=== PATIENT | male | born 1965 | race Two or more races ===

== ENCOUNTER 2024-05-27 18:58 | Emergency (ER) | payer BC, SELFPAY ==
--- NOTE | 2024-05-27 19:04 | EKG_ITS ---
[facility] Test Date: 2024-05-27 Pat Name: GERMAN MELÉNDEZ Department: Room: - Gender: Male Director Of Promotions: : 1965 Requested By: Colin Manuel Order Number: [id number] Reading MD: Colin Manuel Measurements Intervals [place] Rate: 83 P: 48 IN: 177 QRS: -4 QRSD: 100 T: 29 QT: 349 QTc: 412 Interpretive Statements SINUS RHYTHM Compared to ECG 05/16/2018 14:28:26 No significant changes /store/S0/[id number]/[id number].pdf
[2024-05-27 19:48] VITALS: BP 164/96; PULSE 89; RESP 18; TEMP 37.1; O2SAT 97; BMI 24.7
--- NOTE | 2024-05-27 20:12 | EDNOTE_ITS ---
ED Chest Pain RME/HPI General Chief Complaint: Chest Pain Stated Complaint: CHEST PAIN Time Seen by Provider: 05/27/24 19:47 Arrival date/time: 05/27/24 18:58 RME / HPI RME / HPI narrative: This section includes all my notes and documentations, including HPI, PE, and ED course. Lucho Kothari MD HPI: 59yo male with a history of HTN presents to the ED for a chief complaint of upper abdominal pain radiating into the chest. Daughter states the patient has had an upset stomach for the last 2-3 days, reporting associated diarrhea. Patient states he's had a decreased appetite today and was having mid-chest pain, so he came in for evaluation. He denies any N/V, fever, chills or any other associated symptoms. No other complaints reported. ROS: All negative except as documented in HPI. Physical Exam: General: Alert and oriented. No acute distress when remaining still. Eyes: Conjunctivae and lids clear. ENT: No nasal congestion. Neck: Supple. Heart: RRR. Lungs: No respiratory distress. Good air movement. No rhonchi, wheezing, rales. Abdomen: Soft and nontender. Legs: No clubbing, cyanosis, edema. Skin: Warm and dry. Neuro: Alert and oriented X 3. I reviewed all diagnostic test results. My interpretation of the EKG is sinus rhythm with no acute ST?T changes. My interpretation of the chest x-ray is NAD. My review of the gallbladder US report is NAD. Blood tests unremarkable. At this point, diagnoses include stomach ulcer. Treatment here included Famotidine, Zofran, and Pantoprazole. Significant improvement noted. Recommended outpatient treatment and more outpatient workup. Based on my best medical judgment, made decision no further evaluation or treatment indicated at this time. Patient understands and agrees to the discharge instructions customized and printed, see below. Discharge instructions from Dr. Kothari: ?After evaluation, your symptoms are due to stomach ulcer (see attached handout). There is no emergency such as appendicitis needing emergent surgery. There are no heart attack. ?To help heal the ulcer, take Omeprazole 40 mg every morning and Famotidine 40 mg at bedtime for a month. ?Zofran for nausea/vomiting. Clear liquid diet for 24 hours. Then slowly advance diet as tolerated. ?Avoid food and beverages that can trigger and worsen ulcers. See attached handout. ?See a private doctor on 05/29/24 for recheck and further care. To make sure there is no serious intra-abdominal condition, ask for help with more investigation not available here in the ER. Such as EGD or scoping the stomach, colonoscopy or scoping the colon, and referral to see desktop publisher. ?Seek immediate medical care with worsening or with any concerns. Lucho Kothari MD Related Data Home Medications ?Medication ?Instructions ?Recorded ?Confirmed lisinopril 20 1 tab PO QDAY 05/16/1805/17 mg-hydrochlorothiazide 25 mg tablet uydmbqvaot-SS-dyyjistbtwsyh 12.5 30 ml PO QID PRN Cold Symptoms 05/17/18 05/17/18 mg-30 mg-1,000 mg/30 mL oral liquid (Nite Time Cold-Flu Relief) ibuprofen 200 mg tablet (Advil) 200 mg PO QID PRN Pain 05/17/18 05/17/18 wtxtvcnc-aaj-qltbq acid 0.4 1 tab PO QDAY 05/17/1806/30 mg-lycopene 300 mcg-lutein 250 mcg tablet (Centrum Silver) omeprazole 20 mg capsule,delayed 20 mg PO QDAY 9 05/17/18 release ubzybsucfwiwd-PV-chmndehzyvfiv 5 30 ml PO Q4H PRN Cold Symptoms 05/17/18 05/17/18 mg-10 mg-325 mg/15 mL oral liquid (Daytime Cold-Flu) Previous Rx's ?Medication ?Instructions ?Recorded docusate sodium 100 mg capsule 100 mg PO BID #40 caps 05/17/18 (Colace) hydrocodone 10 mg-acetaminophen 1 tab PO Q6H PRN pain #25 tabs 05/17/18 325 mg tablet ([place]) famotidine 40 mg tablet 40 mg PO .bedtime #30 tabs 0 05/27/24 omeprazole 40 mg capsule,delayed 40 mg PO QDAY #30 cap s 05/27/24 release ondansetron 4 mg disintegrating 4 mg PO TID PRN nausea and 05/27/24 tablet vomiting 30 days #10 tabs Allergies Allergy/AdvReac Type Severity Reaction Status Date / Time No Known Allergies Allergy Verified 05/17/18 11:48 Review of Systems Review of Systems Systems Reviewed: All systems reviewed, normal except as documented Past Medical History Past Medical History NEUROLOGIC: Negative Neurological Disorders or Seizures CARDIAC: Positive Cardiac Disorders and Hypertension (TAKES MED); Negative Congestive Heart Failure RESPIRATORY: Negative Chronic Obstructive Pulmonary Disease (COPD) GASTROINTESTINAL: Negative Gastrointestinal Disorders GENITOURINARY: Negative Genitourinary Disorders or Renal Disease MUSCULOSKELETAL: Positive Musculoskeletal Disorders and Arthritis (RIGHT ARM) ENDOCRINE: Negative Endocrine Disorders, Diabetes Mellitus Type 1 or Diabetes Mellitus Type 2 HEMATOLOGIC: Negative Blood Disorders OTHER HISTORY: Positive Chicken Pox and Measles; Negative Hospitalization, Autoimmune Disease, Shingles, Falls, Blood Transfusions, Anesthesia Reactions, Chemotherapy or Radiation Therapy Family History FAMILY HISTORY: Positive Family Cardiac Disorders (FATHER (CVA),BROTHER (MO)), Family Gastrointestinal Problems (MOTHER (GI)) and Family Surgery (BROTHERS,MOTHER); Negative Family Psychiatric Problems, Family Respiratory Disorders, Family Cancer or Family Anesthesia Reaction Social History SMOKING STATUS: Never smoker ED Exam Narrative Physical exam: As noted in HPI. Course Quality Measures none Orders Category Date Time Status EKG (ED ONLY) *Do not use* NOW Care 05/27/24 19:04 Completed EKG (ED Only) Stat Exams 05/27/24 19:04 Draft US gall bladder Stat Exams 05/27/24 20:15 Completed XR chest 1V portable Stat Exams 05/27/24 20:15 Completed Amylase Stat Lab 05/27/24 22:28 Completed CBC Stat Lab 05/27/24 22:28 Completed CMP [Comprehensive Metabolic Panel] Stat Lab 05/27/24 22:28 Completed Lipase Stat Lab 05/27/24 22:28 Completed Magnesium Stat Lab 05/27/24 22:28 Completed Troponin I Stat Lab 05/27/24 22:28 Completed Famotidine [Pepcid] Med 05/27/24 20:15 Discontinued 40 mg PO X1 ONE Ondansetron Odt [Zofran Odt] Med 05/27/24 20:15 Discontinued 4 mg PO X1 ONE Pantoprazole [Protonix] Med 05/27/24 20:15 Discontinued 40 mg PO X1 ONE Vital Signs Vital signs: Vital Signs Temperature 98.7 F 05/27/24 19:48 Pulse Rate 89 05/27/24 19:48 Respiratory Rate 18 05/27/24 19:48 Blood Pressure 164/96 H 05/27/24 19:48 Pulse Oximetry (%) 97 05/27/24 19:48 Oxygen Delivery Method Room Air 05/27/24 19:48 Chest Pain MDM Narrative MDM Narrative:: Scribe Attestation: 05/27/24 - Jory Clinton am scribing for and in the presence of Dr. Kothari. Patient data External records reviewed:: [facility] [place] previous records (Per chart review, patient has no previous ED visits to this facility.) Clinical information provided by:: patient Social determinants that could affect healthcare access:: none Patient has the following chronic illnesses:: HTN How is presenting disease/condition affected by chronic disease/condition?: uneffected by Evaluation data The following diagnostics were reviewed and interpreted by me:: lab results, radiology exam(s) and EKG tracing(s) Lab and/or radiology exams considered but not ordered:: none Interpretation Summary: Normal diagnostics Medications / Prescriptions Medications or Prescriptions considered but not ordered:: none Medication administrations:: Medication Administration History Discontinued Medications Famotidine (Famotidine 20 Mg Tablet) 40 mg PO X1 ONE Stop: 05/27/24 20:16 Last Admin: 05/27/24 20:24 Dose: 40 mg Documented By: OA Ondansetron HCl (Ondansetron Odt 4 Mg Tabrap) 4 mg PO X1 ONE; Protocol Stop: 05/27/24 20:16 Last Admin: 05/27/24 20:24 Dose: 4 mg Documented By: OA Pantoprazole Sodium (Pantoprazole 40 Mg Tablet) 40 mg PO X1 ONE Stop: 05/27/24 20:16 Last Admin: 05/27/24 20:24 Dose: 40 mg Documented By: OA Famotidine, Zofran, Pantoprazole Consultations Consultation(s) initiated? (list below): No Diagnosis Chest Pain Differential Diagnosis: stable angina, unstable angina pectoris, st elevation myocardial infarction, biliary colic and other (GERD, PUD, gastritis) Most likely diagnosis given after review of the tests above:: Stomach ulcer Admission Indicated Admission indicated?: not indicated Explain why admission is indicated or not indicated:: No criteria for admission. Admission Request Was there a request for admission?: No Disposition Plan Disposition Plan: Discharge Discharge Attestation Discharge Attestation: The patient and all family members were given an opportunity to ask questions and understood the discharge instructions. Discharge instructions specifically effects, indications for sooner follow up or return to the emergency department, and the expected course of current diagnosis. Patient condition: Stable Discharge Plan Plan Patient Disposition: HOME (Self Care) Prescriptions/Referrals Prescriptions/Med Rec: New famotidine 40 mg tablet 40 mg PO .bedtime Qty: 30 0RF omeprazole 40 mg capsule,delayed release(DR/EC) 40 mg PO QDAY Qty: 30 0RF ondansetron 4 mg tablet,disintegrating 4 mg PO TID PRN (Reason: nausea and vomiting) 30 Days Qty: 10 0RF No Action lisinopril-hydrochlorothiazide 20-25 mg Tablet 1 tab PO QDAY ibuprofen [Advil] 200 mg Tablet 200 mg PO QID PRN (Reason: Pain) omeprazole 20 mg Capsule,Delayed Release(Dr/Ec) 20 mg PO QDAY Nite Time Cold-Flu Relief 12.5-30-1,000 mg/30 mL Liquid 30 ml PO QID PRN (Reason: Cold Symptoms) Centrum Silver 0.4-300-250 mg-mcg-mcg Tablet 1 tab PO QDAY Daytime Cold-Flu 5-10-325 mg/15 mL Liquid 30 ml PO Q4H PRN (Reason: Cold Symptoms) docusate sodium [Colace] 100 mg capsule 100 mg PO BID Qty: 40 0RF hydrocodone-acetaminophen [[place]] 10-325 mg tablet 1 tab PO Q6H MDD 5 PRN (Reason: pain) Qty: 25 0RF Referrals: No Primary/Family,Physician [Primary Care Provider] - In 1 week Problem List Clinical Impression: Stomach ulcer Patient/Caregiver Discharge Instructions Discharge Activity: activity as tolerated Education Materials: ED PEPTIC ULCER vs GASTRITIS Additional Instructions: Discharge instructions from Dr. Kothari: ?After evaluation, your symptoms are due to stomach ulcer (see attached handout).? There is no emergency such as appendicitis needing emergent surgery. There are no heart attack. ?To help heal the ulcer, take Omeprazole 40 mg every morning and Famotidine 40 mg at bedtime for a month. ?Zofran for nausea/vomiting.? Clear liquid diet for 24 hours.? Then slowly advance diet as tolerated. ?Avoid food and beverages that can trigger and worsen ulcers.? See attached handout. ?See a private doctor on 05/29/24 for recheck and further care. To make sure there is no serious intra-abdominal condition, ask for help with mo re investigation not available here in the ER.? Such as EGD or scoping the stomach, colonoscopy or scoping the colon, and referral to see desktop publisher. ?Seek immediate medical care with worsening or with any concerns. Instrucciones de fili del Dr. Kothari: ?Despu?s de la evaluaci?n, jadon s?ntomas se deben a stephanie ?lcera estomacal (jaida folleto adjunto). No se trata de stephanie emergencia meredith apendicitis que requiera cirug?a de urgencia. No hay jordan?n infarto. ?Para ayudar a cicatrizar la ?lcera, tome omeprazol 40 mg todas las ma?anas y famotidina 40 mg antes de acostarse tawny un mes. ?Zofran para n?useas y v?mitos. Dieta l?quida tawny 24 horas. Luego, aumente gradualmente la dieta seg?n la tolerancia. ?Evite alimentos y bebidas que puedan desencadenar y empeorar las ?lceras. Jaida folleto adjunto. ?Consulte con un m?dico particular el 29/05/24 para stephanie nueva revisi?n y atenci?n adicional. Para asegurarse de que no haya stephanie afecci?n intraabdominal grave, solicite ayuda con otras pruebas que no est?n disponibles en urgencias, meredith stephanie endoscopia estomacal (EGD) o stephanie endoscopia g?strica, stephanie colonoscopia o stephanie endoscopia de colon, y la derivaci?n a un gastroenter?logo. ?Busque atenci?n m?dica inmediata si empeora o tiene alguna inquietud. Print Language: Irish Stand Alone Forms: Charity Award Info., Patient Portal Info Letter
--- NOTE | 2024-05-27 20:15 | XR_ITS ---
Examination: PA chest single view Technique: Upright PA chest single view Exam date and time: May 27, 2024 2107 hrs. Indications: Chest pain today. Findings: Normal heart size Mild ectasia thoracic aorta. No pneumonia or pulmonary edema Impression: No active disease
--- NOTE | 2024-05-27 20:15 | XR_ITS ---
Examination: Abdomen sonogram, Limited Date and time of exam: May 27, 2024 2115 hrs. Indications: Right upper abdominal pain and tenderness beginning 2 days ago Technique: Real-time lyles scale transabdominal sonographic images of the upper abdomen obtained. Findings: Gallbladder contracted Gallbladder wall 0.2 cm Common bile duct 0.5 cm Pancreatic head 2.4 cm Liver 13.0 cm fatty infiltration Normal hepatopedal portal venous flow Patent IVC Impression: Repeat the gallbladder portion of the study with fasting
[2024-05-27] MEDS: ONDANSETRON ODT 4 MG TABRAP PO (20:24)
[2024-05-27] MEDS: FAMOTIDINE 20 MG TABLET 40 MG PO (20:24)
[2024-05-27] MEDS: PANTOPRAZOLE 40 MG TABLET PO (20:24)
[2024-05-27 22:36] LABS: Basophils % (Auto) 0 % (0-2.5); Eosinophils % (Auto) 1 % (0-10); Hematocrit 45.8 % (41.0-53.0); Immature Granulocytes % (Auto) 0 % (0-0); Immature Granulocytes Auto 0.01 Thou/mm3 (0.00-0.00); Lymphocytes # (Auto) 1.5 Thou/mm3 (1.0-4.8); Lymphocytes % (Auto) 31 % (10-50); Mean Corpuscular HGB Conc 34.9 g/dl (31.0-37.0); Mean Corpuscular Hemoglobin 31.9 pg (25.0-35.0); Mean Corpuscular Volume 91 fL (80-100); Monocytes # (Auto) 0.7 Thou/mm3 (0.0-0.8); Monocytes % (Auto) 14 % (0-12); Neutrophils # (Auto) 2.6 Thou/mm3 (1.8-7.7); Neutrophils % (Auto) 54 % (37-80); Nucleated Red Blood Cell % 0 /100 WBC (0); Platelet Count 265 Thou/mm3 (140-440); RDW Standard Deviation 40.7 fL (35.1-43.9); Red Blood Count 5.02 Miln/mm3 (4.50-5.90); White Blood Count 4.9 Thou/mm3 (3.8-10.6)
[2024-05-27 23:07] LABS: Anion Gap 6 (7-16); BUN/Creatinine Ratio 15 Ratio (12-20); Blood Urea Nitrogen 15 mg/dL (9-23); Carbon Dioxide 29.9 mMol/L (20.0-31.0); Chloride 104 mMol/L (98-107); Glucose 104 mg/dL (74-106); Potassium 3.5 mMol/L (3.4-5.1); Sodium 140 mMol/L (136-145); eGFR > 60 See Note
[2024-05-27 23:08] LABS: Alanine Aminotransferase 34 U/L (10-49); Albumin, Serum 5.2 gm/dL (3.4-4.8); Alkaline Phosphatase 67 U/L (46-116); Amylase 127 U/L (30-118); Aspartate Amino Transferase 33 U/L (0-34); Bilirubin,Total 0.5 mg/dL (0.3-1.2); Calcium 9.1 mg/dL (8.3-10.6); Calcium (Corrected) 9.1 mg/dL (8.5-10.1); Globulin 2.6 gm/dL (2.3-3.5); Lipase 34 U/L (12-53); Magnesium 2.2 mg/dL (1.6-2.6); Osmolality,Calculated 280 (275-295); Total Protein 7.8 gm/dL (5.7-8.2); Troponin I < 0.020 ng/mL (0.0-0.045)
== END 2024-05-27 23:28 | disposition home or self-care (01) ==
PROVIDERS: Emergency Provider Emergency Medicine
DX: K25.9 Gastric ulcer, unspecified as acute or chronic, without hemorrhage or perforation (principal); R10.11 Right upper quadrant pain; R07.9 Chest pain, unspecified; I10 Essential (primary) hypertension
CPT/HCPCS: 36415; 71045; 76705; 80053; 82150; 83690; 83735; 84484; 85025; 93005; 99284; Q0162; A9270